=== PATIENT | male | born 1995 | race Caucasian/White ===

== ENCOUNTER 2019-04-25 21:20 | Emergency (ER) | payer OTHER ==
--- NOTE | 2019-04-25 22:59 | ED ---
Adult Trauma - HPI Summary HPI Summary: 24-year-old male presents with head injury and rib injury today. States he was playing hockey when he got hit on the right side. He also hit his head. Was wearing a helmet. Denies any loss consciousness. 4 out of 10 for his headache. He admits to blurry vision but that has resolved. He admits to some dizziness. He admits to nausea or vomiting. No photophobia. No difficulties concentrating. He does have a history of a minor concussion. has history of autoimmune disorder. States pain in ribs hurts more when he takes a deep breath. No abdominal pain. - History of Current Complaint Chief Complaint: EDHeadInjury Stated Complaint: POSS CONCUSSION AND LUNG PAIN PER PT Time Seen by Provider: 04/25/19 22:47 Pain Intensity: 6 - Allergy/Home Medications Allergies/Adverse Reactions: Allergies Allergy/AdvReac Type Severity Reaction Status Date / Time Sulfa (Sulfonamide Allergy Unknown Rash Verified 04/25/19 21:25 Antibiotics) PMH/Surg Hx/FS Hx/Imm Hx Endocrine/Hematology History: Denies: Hx Anticoagulant Therapy Respiratory History: Denies: Hx Asthma Infectious Disease History: No Infectious Disease History: Denies: Traveled Outside the [place] in Last 30 Days - Family History Known Family History: Positive: Non-Contributory - Social History Alcohol Use: Occasionally Substance Use Type: Reports: None Smoking Status (MU): Never Smoked Tobacco Review of Systems Negative: Fever Negative: Chest Pain Negative: Shortness Of Breath Positive: Nausea. Negative: Vomiting Positive: Myalgia - rib pain Positive: Headache All Other Systems Reviewed And Are Negative: Yes Physical Exam Triage Information Reviewed: Yes Vital Signs On Initial Exam: Initial Vitals Temp Pulse Resp BP Pulse Ox 97.9 F 54 16 125/55 98 04/25/19 21:22 04/25/19 21:22 04/25/19 21:22 04/25/19 21:22 04/25/19 21:22 Vital Signs Reviewed: Yes Appearance: Positive: Well-Appearing Skin: Positive: Warm, Dry Head/Face: Positive: Normal Head/Face Inspection Eyes: Positive: Normal, EOMI, JANEE, Conjunctiva Clear ENT: Positive: Normal ENT inspection, Pharynx normal, TMs normal Respiratory/Lung Sounds: Positive: Clear to Auscultation, Breath Sounds Present , Other - tenderness lateral right ribs 5-7 Cardiovascular: Positive: Normal, RRR Abdomen Description: Positive: Nontender, Soft Bowel Sounds: Positive: Present Neurological: Positive: Sensory/Motor Intact, Alert, Oriented to Person Place, Time, CN Intact II-III, Finger to Nose Psychiatric: Positive: Normal - Lovely Coma Scale Best Eye Response: 4 - Spontaneous Best Motor Response: 6 - Obeys Commands Best Verbal Response: 5 - Oriented Coma Scale Total: 15 Procedures - Sedation Patient Received Moderate/Deep Sedation with Procedure: No Diagnostics - Vital Signs Vital Signs Temp Pulse Resp BP Pulse Ox 04/25/19 21:22 97.9 F 54 16 125/55 98 - Laboratory Lab Statement: Any lab studies that have been ordered have been reviewed, and results considered in the medical decision making process. - Radiology chest Radiology Interpretation Completed By: ED Physician Summary of Radiographic Findings: no displaced rib fracture Adult Trauma Course/Dx - Course Course Of Treatment: 24-year-old male presents with head injury and rib injury today. States he was playing hockey when he got hit on the right side. He also hit his head. Was wearing a helmet. Denies any loss consciousness. 4 out of 10 for his headache. He admits to blurry vision but that has resolved. He admits to some dizziness. He admits to nausea or vomiting. No photophobia. No difficulties concentrating. He does have a history of a minor concussion. has history of autoimmune disorder. States pain in ribs hurts more when he takes a deep breath. No abdominal pain. on exam tenderness lateral right ribs 5-7. no step off. normal neuro exam. according to [place] [facility] rules no head imaging required. gave concussion precautions and will have pulled from hockey. no displaced rib fx seen on plain films. offered to do rib series or CT and patient declined. told take deep breathes throughout the day. patient understand and agrees with plan. - Diagnoses Differential Diagnosis/HQI/PQRI: Positive: Abrasion(s), Contusion(s), Fracture Provider Diagnoses: Rib injury, Head injury Discharge ED - Sign-Out/Discharge Documenting (check all that apply): Patient Departure - Discharge Plan Condition: Good Disposition: HOME Patient Education Materials: Concussion (ED), Rib Contusion (ED) Referrals: Lilia Barboza DO [Primary Care Provider] - Additional Instructions: Place ice on area as needed Take Tylenol or ibuprofen for pain every 6 hours Modify activities as tolerated take deep breath throughout the day Follow up with [facility] within 5 days Return to ED if develop any new or worsening symptoms - Billing Disposition and Condition Condition: GOOD Disposition: Home
[2019-04-25 23:42] VITALS: BP 123/72
== END 2019-04-25 23:41 | disposition home or self-care (01) ==
LOC: ED 21:20
DX: S09.90XA Unspecified injury of head, initial encounter (principal); S29.9XXA Unspecified injury of thorax, initial encounter; S21.90XA Unspecified open wound of unspecified part of thorax, initial encounter; W50.0XXA Accidental hit or strike by another person, initial encounter; Y93.22 Activity, ice hockey; Y92.39 Other specified sports and athletic area as the place of occurrence of the external cause; R11.0 Nausea; R51 Headache; R42 Dizziness and giddiness; Z88.2 Allergy status to sulfonamides
CPT/HCPCS: 71046; 99282